=== PATIENT | male | born 1985 | race Two or more races ===

== ENCOUNTER 2018-06-11 11:45 | Emergency (ER) | payer SELFPAY ==
[~2018-06-11] VITALS: Ht 175.3 cm; Wt 92.5 kg
[~2018-06-11 11:45] MED LIST: IBUP-1984 PO
[2018-06-11 12:04] VITALS: BP 125/90
== END 2018-06-11 12:46 | disposition home or self-care (01) ==
LOC: MERGE 11:45 → ER 11:45
DX: S01.01XD Laceration without foreign body of scalp, subsequent encounter (principal); S41.112D Laceration without foreign body of left upper arm, subsequent encounter; S71.111D Laceration without foreign body, right thigh, subsequent encounter; Z79.899 Other long term (current) drug therapy; W22.8XXD Striking against or struck by other objects, subsequent encounter
CPT/HCPCS: 99281